=== PATIENT | female | born 1960 | race Caucasian/White ===

== ENCOUNTER → 2024-08-14 14:57 | Outpatient (REF) | payer BC, SELFPAY | LOC: HWWDC 14:57 | PROVIDERS: ATTENDING PHYSICIAN Obstetrics & Gynecology; FAMILY PHYSICIAN Family Medicine | DX: Z12.31 Encounter for screening mammogram for malignant neoplasm of breast (principal); Z78.0 Asymptomatic menopausal state | CPT/HCPCS: 77063; 77067; 77080 ==

== ENCOUNTER → 2025-01-27 07:50 | Outpatient (REF) | payer BC, SELFPAY | LOC: WDC 07:50 | PROVIDERS: ATTENDING PHYSICIAN Obstetrics & Gynecology; FAMILY PHYSICIAN Family Medicine | DX: R92.2 Inconclusive mammogram (principal) | CPT/HCPCS: 76641 ==